=== PATIENT | female | born 1990 | race Caucasian/White ===

== ENCOUNTER 2017-06-23 13:13 | Emergency (ER) | payer OTHER ==
[~2017-06-23] VITALS: Ht 157.5 cm; Wt 80.5 kg
[~2017-06-23 13:13] MED LIST: FERR-31 PO; PNV1TABL43 PO
[2017-06-23 13:26] VITALS: Ht 157.5 cm; Wt 80.5 kg
[2017-06-23 16:10] LABS: BASOPHILS % 0.2 % (0.0-2.0); EOSINOPHILS # 0.1 10^3/ul (0.0-0.5); EOSINOPHILS % 0.5 % (0.0-7.0); HEMATOCRIT 35.1 % (37.0-47.0); LYMPHOCYTES # 3.5 10^3/ul (0.8-2.9); LYMPHOCYTES % 28.8 % (15.0-51.0); MEAN CORPUSCULAR HEMOGLOBIN 29.2 pg (29.0-33.0); MEAN CORPUSCULAR HGB CONC 34.2 g/dl (32.0-37.0); MEAN CORPUSCULAR VOLUME 85.4 fl (82.0-101.0); MEAN PLATELET VOLUME 10.9 fl (7.4-10.4); MONOCYTE # 0.5 10^3/ul (0.3-0.9); MONOCYTES % 3.7 % (0.0-11.0); NEUTROPHILS % 66.4 % (39.0-77.0); PLATELET COUNT 206 10^3/UL (140-415); RED BLOOD COUNT 4.11 10^6/ul (4.20-5.40); WHITE BLOOD COUNT 12.1 10^3/ul (4.8-10.8)
[2017-06-23 16:37] LABS: ADD UMIC YES; UR ASCORBIC ACID NEGATIVE (NEGATIVE); UR BACTERIA FEW /HPF (NONE SEEN); UR BILIRUBIN (Dip) NEGATIVE (NEGATIVE); UR BLOOD (Dip) NEGATIVE (NEGATIVE); UR CLARITY SLIGHTLY CLOUDY (CLEAR); UR COLOR YELLOW (YELLOW); UR GLUCOSE (Dip) NEGATIVE (NEGATIVE); UR KETONES (Dip) 1+ mg/dL (NEGATIVE); UR LEUKOCYTE ESTERASE (Dip) TRACE Leu/ul (NEGATIVE); UR MUCUS FEW /HPF (NONE SEEN); UR NITRITE (Dip) NEGATIVE (NEGATIVE); UR RBC 1 /HPF (0-5); UR SPECIFIC GRAVITY (Dip) 1.024 (1.003-1.030); UR SQUAMOUS EPITHELIAL CELL FEW /HPF (FEW); UR TOTAL PROTEIN (Dip) NEGATIVE (NEGATIVE); UR UROBILINOGEN (Dip) NEGATIVE (NEGATIVE)
--- NOTE | 2017-06-23 16:39 | RADRPT ---
PROCEDURE: US OB. CLINICAL INDICATION: Size and dates , pelvic pain TECHNIQUE: Multiple sonographic images of the pelvis and gravid uterus were obtained. The images were reviewed on a PACS workstation. COMPARISON: No prior studies are available for comparison. FINDINGS: There is a single viable intrauterine gestation. Cardiac activity is present with 168 beats per min [place]. There is a vertex presentation. The placenta is posterior maternal right. There is no evidence for an abruption or placenta previa. MVP = 4.9 cm. Measurements were made in order to determine age. The results are as follows: BPD =4.6 cm HC =16.7 cm AC =13.3 cm FL =2.9 cm Estimated gestational age of approximately 19 weeks and 2 days based on ultrasound measurements. Clinical age: 19 weeks and 0 days. The estimated date of delivery is 11/15/17, based on ultrasound measurements. The EFW = 266 g, 42.6%, based on LMP age. RPTAT: AA IMPRESSION: Single viable intrauterine gestation of approximately 19 weeks and 2 days based on ultrasound measu rements. .Alex Ballesteros MD, MD Date Time Electronically viewed and signed by .Alex Ballesteros MD, MD on 06/23/2017 16:38 .S/
[2017-06-23 16:42] LABS: ALBUMIN/GLOBULIN RATIO 0.9; BILIRUBIN,INDIRECT 0.1 mg/dl (0-1.1); BILIRUBIN,TOTAL 0.1 mg/dl (0.2-1.3); CALCIUM 9.8 mg/dl (8.4-10.2); CREATININE 0.45 mg/dl (0.44-1.00); POTASSIUM 3.7 mmol/L (3.5-5.1); TOTAL PROTEIN 8.4 g/dl (6.1-8.1)
[2017-06-23] MEDS ORDERED: TYL500 PO (17:32)
--- NOTE | 2017-06-23 21:08 | ERD ---
ER Documentation Chief Complaint Chief Complaint AP LOWER BACK PAIN HPI This is a 27-year-old female presents to the ER with pelvic pain that radiates to her back that started last night. Patient denies any vaginal bleeding or vaginal discharge. She is currently 19 weeks . She denies any urinary frequency or dysuria. She denies any fevers or chills. She denies any nausea vomiting or diarrhea. A0. ROS 12 point review of systems was done, all negative except per HPI. Medications Home Meds Active Scripts Acetaminophen* (Tylenol*) 500 Mg Tab, 500 MG PO Q4H Y for MILD PAIN LEVEL 1-3 for 3 Days, TAB Prov:KAYLA DRAKE 06/23/17 Reported Medications Ferrous Sulfate (Iron Supplement) 1 Tab Tablet, 1 TAB PO DAILY 03/03/14 Vit/Fe Fumarate/Fa* ( Vitamin Tablet*) 1 Tab Tablet, 1 TAB PO 01/08/14 Allergies Allergies: Coded Allergies: No Known Drug Allergies (Unverified Allergy, Unknown, 01/08/14) PMhx/Soc Medical and Surgical Hx: pt denies Medical Hx, pt denies Surgical Hx Physical Exam Vitals Vital Signs Date Time Temp Pulse Resp B/P Pulse Ox O2 Delivery O2 Flow Rate FiO2 06/23/17 13:26 98.6 83 18 125/72 99 Physical Exam GENERAL: The patient is well developed and appropriate for usual state of health , in no apparent distress. HEENT: Atraumatic. CHEST: Clear to auscultation bilaterally. There are no rales, wheezes or rhonchi. HEART: Regular rate and rhythm. No murmurs, clicks, rubs or gallops. ABDOMEN: Soft, nontender and nondistended. Good bowel sounds. No rebound or guarding. No gross peritonitis. No gross organomegaly or masses. No Larson sign or McBurney point tenderness. mild pelvic pain with palpation BACK: No midline or flank tenderness. NEURO: Alert and oriented. SKIN: There is no apparent rash or petechia. The skin is warm and dry. Result Diagram: 06/23/17 1555 06/23/17 1555 Results 24 hrs Laboratory Tests Test 06/23/17 15:53 06/23/17 15:55 Urine Color YELLOW Urine Clarity SLIGHTLY CLOUDY Urine pH 5.0 Urine Specific Ava 1.024 Urine Ketones 1+mg/dL Urine Nitrite NEGATIVEmg/dL Urine Bilirubin NEGATIVEmg/dL Urine Urobilinogen NEGATIVEmg/dL Urine Leukocyte Esterase TRACELeu/ul Urine Microscopic RBC 1/HPF Urine Microscopic WBC 4/HPF Urine Squamous Epithelial Cells FEW/HPF Urine Bacteria FEW/HPF Urine Mucus FEW/HPF Urine Hemoglobin NEGATIVEmg/dL Urine Glucose NEGATIVEmg/dL Urine Total Protein NEGATIVEmg/dl White Blood Count 12.110^3/ul Red Blood Count 4.1110^6/ul Hemoglobin 12.0g/dl Hematocrit 35.1% Mean Corpuscular Volume 85.4fl Mean Corpuscular Hemoglobin 29.2pg Mean Corpuscular Hemoglobin Concent 34.2g/dl Red Cell Distribution Width 12.0% Platelet Count 21928^3/UL Mean Platelet Volume 10.9fl Neutrophils % 66.4% Lymphocytes % 28.8% Monocytes % 3.7% Eosinophils % 0.5% Basophils % 0.2% Nucleated Red Blood Cells % 0.0/100WBC Neutrophils # 8.010^3/ul Lymphocytes # 3.510^3/ul Monocytes # 0.510^3/ul Eosinophils # 0.110^3/ul Basophils # 0.010^3/ul Nucleated Red Blood Cells # 0.010^3/ul Sodium Level 137mmol/L Potassium Level 3.7mmol/L Chloride Level 101mmol/L Carbon Dioxide Level 24mmol/L Anion Gap 16 Blood Urea Nitrogen 10mg/dl Creatinine 0.45mg/dl Glucose Level 96mg/dl Calcium Level 9.8mg/dl Total Bilirubin 0.1mg/dl Direct Bilirubin 0.00mg/dl Indirect Bilirubin 0.1mg/dl Aspartate Amino Transf (AST/SGOT) 22IU/L Alanine Aminotransferase (ALT/SGPT) 26IU/L Alkaline Phosphatase 100IU/L Total Protein 8.4g/dl Albumin 4.0g/dl Globulin 4.40g/dl Albumin/Globulin Ratio 0.90 Beta HCG, Quantitative 7218.4mIU/ml Procedures/MDM Differential diagnosis: Threatened , missed , incomplete , ectopic , molar , UTI, pyelonephritis. This is a 27 -year-old female presents to the ER with pelvic pain. Patient has not had any vaginal bleeding or vaginal discharge. Her ultrasound was normal. Patient was advised that she can take Tylenol for her pain. Follow-up with her OB as soon as possible or return to ER sooner if symptoms worsen. My medical decision decision making was shared with the patient she understands and agrees with plan. Departure Diagnosis: Primary Impression: Pelvic pain Condition: Stable Patient Instructions: Pelvic Pain In : Unclear (2-3 Trimester) Additional Instructions: Call your primary care doctor TOMORROW for an appointment during the next 1-2 days.See the doctor sooner or return here if your condition worsens before your appointment time. KALYA DRAKE Jun 23, 2017 21:08
== END 2017-06-23 17:50 | disposition home or self-care (01) ==
LOC: FTE 13:13
DX: R10.2 Pelvic and perineal pain (principal)
CPT/HCPCS: 76805; 80053; 81001; 84702; 85025; 86900; 86901; Z7502

== ENCOUNTER 2017-09-23 10:10 | Outpatient (CLI) | END 2017-09-23 13:40 | disposition home or self-care (01) ==

== ENCOUNTER 2017-10-12 16:10 | Inpatient (IN) | END 2017-10-15 14:55 | disposition home or self-care (01) | DRG 781 ==

== ENCOUNTER 2017-10-28 21:04 | Outpatient (CLI) | END 2017-10-29 02:15 | disposition home or self-care (01) ==